=== PATIENT | female | born 1960 | race Caucasian/White ===

== ENCOUNTER → 2022-04-08 13:43 | Outpatient (CLI) | payer OTHER, SELFPAY ==
--- NOTE | ~2022-04-08 | DEXA_ITS ---
Bone Density Report Name: JOHNNIE MONTESINOS Age: 61 Sex: Female Ethnicity: White Date of : 1960 Indication: postmenopausal; screening for osteoporosis; Referring Provider: JOANNE, GARY Metzger Study: Bone densitometry was performed. Exam Date: April 08, 2022 Accession number: [id number] Bone Density: Region BMD T-score Z-score Classification AP Spine (L1-L4) 1.172 1.1 2.6 Normal Femoral Neck (Left) 0.818 -0.3 1.0 Normal Total Hip (Left) 1.024 0.7 1.7 Normal Femoral Neck (Right) 0.806 -0.4 0.9 Normal Total Hip (Right) 0.931 -0.1 0.9 Normal Total Hip Mean 0.978 0.3 1.3 Normal World Health Organization criteria for BMD impression classify patients as: Normal (T-score at or above -1.0), Osteopenia (T-score between -1.0 and -2.5), or Osteoporosis (T-score at or below -2.5). 10-year Fracture Risk: FRAX not reported because: All T-scores for Spine Total, Hip Total, Femoral Neck at or above -1.0 Previous Exams: Region Exam Age BMD T-score BMD Change BMD Change Date g/cm2 vs Baseline vs Previous AP Spine(L1-L4) 04/08/2022 61 1.172 1.1 0.022 0.052* 12/21/2016 56 1.120 0.7 -0.030* -0.030* 08/03/2013 53 1.150 0.9 Total Hip(Left) 04/08/2022 61 1.024 0.7 0.079* 0.069* 12/21/2016 56 0.955 0.1 0.010 0.010 08/03/2013 53 0.945 0.0 Total Hip(Right) 04/08/2022 61 0.931 -0.1 0.040* 0.049* 12/21/2016 56 0.882 -0.5 -0.009 -0.009 08/03/2013 53 0.891 -0.4 *Denotes significance at 95% confidence level, LSC for AP Spine = 0.022 g/cm2, LSC for Total Hip = 0.027 g/cm2 Clinical Information Provided by Patient: Has used the following medications: Vitamin D Patient maximum height was 62 Menopause Age: 51 Does not regularly consume dairy products Drinks caffeinated beverages Onset of menses at age 13 Number of children 2 Missed period for more than 6 months in a row Impression: The patient has normal bone mass. No significant bone loss was observed. Discussion: BONE DENSITY IS ABOVE THE MINIMUM DESIRABLE LEVEL AT ALL SKELETAL SITES TESTED. This patient?s bone mineral density is above the minimum desirable level (T-score -1.0 or better) at all sites measured. The patient should follow a healthful lifestyle (good nutrition with adequate calcium and vitamin D, and appropriate weight-bearing exercise). Follow-U
== END ==
PROVIDERS: PCP Family Medicine; Visit Provider Nurse Practitioner
DX: Z13.820 Encounter for screening for osteoporosis (principal); Z78.0 Asymptomatic menopausal state
CPT/HCPCS: 77080

== ENCOUNTER 2022-04-11 05:59 | Day surgery (SDC) | payer OTHER, SELFPAY ==
[2022-02-08 13:48] VITALS: BMI 34.2
[2022-03-30 08:39] VITALS: BMI 33.3
--- NOTE | 2022-04-08 14:07 | PM.HPGS ---
History of Present Illness History of Present Illness Consent: Risks, benefits, and alternatives have been discussed and questions answered. Patient agrees to proceed with procedure. Chief complaint: History of Colon polyp Narrative: Christine Conner is a 61 year old female was referred for colon cancer screening. Her last colonoscopy was 5 years ago. She has a history of polyps. Review of Systems Review of Systems: All systems reviewed & are unremarkable except as noted in HPI and below PMFSH Past Medical History Medical History Martin's palsy Essential (primary) hypertension Hyperlipidemia, mixed Surgical History Surgical History H/O congenital atrial septal defect (ASD) repair Family History Family History Mother Family history of type 2 diabetes mellitus Family history of congestive heart failure, Onset Age: 78 Patient's mother is Father Family history of congestive heart failure, Onset Age: 75 Patient's father is , Onset Age: 75 Social History Social History Smoking status: Never smoker Alcohol intake: current Substance use: never Substance use type: does not use Living arrangements: with family Spiritual care concerns: No Meds Home Medications and Allergies Home Medications Medication Instructions Recorded Confirmed Type hydrochlorothiazide 12.5 mg capsule 12.5 mg PO DAILY #90 caps 02/24/21 04/11/22 Rx doxycycline hyclate 50 mg tablet 50 mg PO PRN PRN Abdominal 05/10/21 04/11/22 History Discomfort lisinopril 10 mg tablet 10 mg PO DAILY #90 tabs 05/27/21 04/11/22 Rx rosuvastatin 10 mg tablet 10 mg PO DAILY #90 tabs 06/07/21 04/11/22 Rx Allergies Allergy/AdvReac Type Severity Reaction Status Date / Time No Known Allergies Allergy Mild Verified 04/11/22 06:36 Exam Resp: Auscultation: clear to auscultation bilaterally Cardio: Rate: regular rate Rhythm: regular rhythm GI: GI Palp: Yes Soft to palpation and No Tenderness to palpation present (GI) Assessment and Plan Assessment and plan (1) Colon cancer screening: Code(s): Z12.11 - Encounter for screening for malignant neoplasm of colon Status: Acute Assessment and Plan: Colonoscopy with possible biopsy or polypectomy or cautery or injection of substances.
[2022-04-11] MEDS: LACTATED RINGERS 1,000 ML 150 ML IV CONT (06:30)
[2022-04-11 06:38] VITALS: BP 126/62; PULSE 96; RESP 16; TEMP 36.8; O2SAT 100
--- NOTE | 2022-04-11 07:01 | WPDANESEPPF ---
Anes - Initial Pre Proc Eval Procedure: Operation Date: 04/11/22 07:30 Proposed Procedures p Screening Colonoscopy - Jerry Pierce MD Date/Time: 04/11/22 07:01 Surgeon: Jerry Pierce MD Pre Op Diagnosis: History of Colon polyp Patient Data Age: 61 Gender: F Height: 1.55 m Weight: 78.2 kg Last Vital Signs Temp 36.8 C 04/11/22 06:38 Pulse 96 04/11/22 06:38 Resp 16 04/11/22 06:38 BP 126/62 04/11/22 06:38 Pulse Ox 100 04/11/22 06:38 O2 Del Method Room Air 04/11/22 06:38 Allergies Allergy/AdvReac Type Severity Reaction Status Date / Time No Known Allergies Allergy Mild Verified 04/11/22 06:36 Home Medications Medication Instructions Recorded Confirmed Type hydrochlorothiazide 12.5 mg capsule 12.5 mg PO DAILY #90 caps 02/24/21 04/11/22 Rx doxycycline hyclate 50 mg tablet 50 mg PO PRN PRN Abdominal 05/10/21 04/11/22 History Discomfort lisinopril 10 mg tablet 10 mg PO DAILY #90 tabs 05/27/21 04/11/22 Rx rosuvastatin 10 mg tablet 10 mg PO DAILY #90 tabs 06/07/21 04/11/22 Rx Patient hx anesthesia problems: none Family hx anesthesia problems: none Results Review: All pre-operative results and documents have been reviewed as part of the pre-operative evaluation. [facility] Past Medical History Medical History (Updated 04/11/22 @ 07:09 by Von Adames DO) Martin's palsy Essential (primary) hypertension Hyperlipidemia, mixed Surgical History Surgical History (Updated 04/11/22 @ 07:09 by Von Adames DO) H/O congenital atrial septal defect (ASD) repair Family History Family History Mother Family history of type 2 diabetes mellitus Family history of congestive heart failure, Onset Age: 78 Patient's mother is Father Family history of congestive heart failure, Onset Age: 75 Patient's father is , Onset Age: 75 Social History Social History Smoking status: Never smoker Alcohol intake: current Substance use: never Substance use type: does not use Living arrangements: with family Spiritual care concerns: No Anes - Eval Final PreProcedure Day of Procedure 04/11/22 07:01 Patient weight: obese Heart: regular rate and rhythm Lungs: clear to auscultation Airway: Mallampati scale class II Neurological: alert and oriented Last oral intake: >/= 8 hours ASA classification: III Emergent: no Anesthetic plan: proceed Anesthesia type and monitoring: general GIVS and standard monitoring Results Review: All pre-operative results and documents have been reviewed as part of the pre-operative evaluation. Informed Consent: The patient's anesthetic plan and its attendant risks and benefits were discussed with the patient/family/POA. Questions were solicited and answers provided to the satisfaction of the patient/family/POA.
[2022-04-11 07:45] VITALS: BP 126/76; PULSE 76; RESP 14; O2SAT 100
[2022-04-11 07:55] VITALS: BP 116/72; PULSE 74; RESP 16; O2SAT 99
[2022-04-11 08:05] VITALS: BP 119/83; PULSE 80; RESP 18; O2SAT 100
--- NOTE | 2022-04-11 11:56 | WPDANESPN ---
Anes - Prog Note Post-Op Date/Time: 04/11/22 11:56 Cardiovascular status: normal Respiratory status: normal Airway patency: baseline Mental status: baseline Post-Op hydration status: normal Vital Signs: Last Vital Signs Temp 36.8 C 04/11/22 06:38 Pulse 80 04/11/22 08:05 Resp 18 04/11/22 08:05 BP 119/83 04/11/22 08:05 Pulse Ox 100 04/11/22 08:05 O2 Del Method Room Air 04/11/22 08:05 Pain Score (VAS): 0 I/O: Intake & Output 04/10/22 04/11/22 04/11/22 23:59 07:59 15:59 Intake Total 400 636 Balance 400 636 Post-procedural complaints: none Patient Feedback: Patient satisfied with anesthetic care. Other Findings: Patient vital signs back to baseline. Patient denies nausea and vomiting. Patient's pain under control. Patient OK for discharge.
== END 2022-04-11 08:30 | disposition home or self-care (01) ==
PROVIDERS: PCP Family Medicine; Visit Provider Internal Medicine Gastroenterology
PROC: 0DJD8ZZ Inspection of Lower Intestinal Tract, Via Natural or Artificial Opening Endoscopic (ICD-10-PCS; CPT 45378; principal; 2022-04-11 07:30)
DX: Z12.11 Encounter for screening for malignant neoplasm of colon (principal)
CPT/HCPCS: 45378

== ENCOUNTER 2022-05-11 10:02 | Outpatient (CLI) | payer OTHER, SELFPAY ==
[2022-05-11 18:27] LABS: Alanine Aminotransferase 33 U/L (6-35); Albumin Level 4.6 g/dL (3.5-5.1); Alkaline Phosphatase 72 U/L (38-126); Anion Gap 8 mmol/L (8-16); Aspartate Amino Transferase 41 U/L (14-36); Bilirubin,Total 0.8 mg/dL (0.2-1.3); Blood Urea Nitrogen 17 mg/dL (7-17); Calcium 8.6 mg/dL (8.4-10.2); Carbon Dioxide 28 mmol/L (22-30); Chloride 102 mmol/L (98-107); Cholesterol 186 mg/dL (0-200); Estimated Glomerular Filt Rate > 60; Glucose 110 mg/dL (65-110); HDL Direct 32 mg/dL; Potassium 4.5 mmol/L (3.4-5.0); Sodium 138 mmol/L (137-145); Triglycerides 167 mg/dL (<150)
[2022-05-11 18:38] LABS: LDL Cholesterol Direct 101 mg/dL
== END 2022-05-11 10:03 | disposition home or self-care (01) ==
LOC: ANHGOSHLAB 10:04
PROVIDERS: PCP Family Medicine; Visit Provider Family Medicine
DX: E78.2 Mixed hyperlipidemia (principal); I10 Essential (primary) hypertension
CPT/HCPCS: 36415; 80053; 80061

== ENCOUNTER 2023-06-08 12:30 | Outpatient (CLI) | payer OTHER, SELFPAY ==
[2023-06-08 18:42] LABS: Alanine Aminotransferase 25 U/L (6-35); Albumin Level 4.5 g/dL (3.5-5.1); Alkaline Phosphatase 67 U/L (38-126); Anion Gap 5 mmol/L (4-12); Aspartate Amino Transferase 37 U/L (14-36); Bilirubin,Total 0.7 mg/dL (0.2-1.3); Blood Urea Nitrogen 25 mg/dL (7-17); Calcium 9.9 mg/dL (8.4-10.2); Carbon Dioxide 29 mmol/L (22-30); Chloride 104 mmol/L (98-107); Cholesterol 258 mg/dL (0-200); Estimated Glomerular Filt Rate > 60; Glucose 101 mg/dL (65-110); HDL Direct 43 mg/dL; Potassium 4.2 mmol/L (3.4-5.0); Sodium 138 mmol/L (137-145); Triglycerides 168 mg/dL (<150)
[2023-06-08 18:58] LABS: LDL Cholesterol Direct 151 mg/dL
== END 2023-06-08 12:31 | disposition home or self-care (01) ==
LOC: ANHGOSHLAB 12:31
PROVIDERS: PCP Family Medicine; Visit Provider Family Medicine
DX: E78.2 Mixed hyperlipidemia (principal); Z13.228 Encounter for screening for other metabolic disorders; Z00.00 Encounter for general adult medical examination without abnormal findings
CPT/HCPCS: 36415; 80053; 80061